=== PATIENT | male | born 1955 | race Caucasian/White ===

== ENCOUNTER 2016-10-05 08:50 | Inpatient (IN) | payer MEDICARE, OTHER ==
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
--- NOTE | ~2016-10-05 | CN ---
Consultation Report [facility] [address] [place]. [address] NAME: MAGGIE DÍAZ : 55 STATUS : ADM IN [facility]#: [id number] AGE: 61 ADM/REG DATE : 10/05/16 MR#: [id number] REPORT SERV DATE: 10/07/16 DICTATED BY: JAMES DC DATE: 10/07/16 REPORT STATUS : Draft TRANSCRIBED BY: NIKKY DATE: 10/07/16 CONSULTATION DATE OF CONSULTATION: 10/07/2016 REASON FOR CONSULTATION: Perineal wound. HISTORY OF PRESENT ILLNESS: Mr. Díaz is a 61-year-old gentleman who underwent an abdominoperineal resection with VRAM flap for an initially perforated rectal cancer. He did have neoadjuvant therapy, and the surgery was on 06/27/2016. He is blind and has a stoma, and for this reason, he will permanently [facility]. He has an indwelling Castro catheter since the time of his surgery and has had a partially dehisced VRAM flap since that time, which has been cared for with moist to dry dressing changes. He was admitted on 10/05/2016 due to hematuria for indwelling Castro and changes in mental status, UTI, and acute kidney injury. Please see Dr. Jean-Paul Hughes' dictation for past medical history, past surgical history, allergies, medications, social history, and family history. REVIEW OF SYSTEMS: As stated in the HPI, otherwise, negative. PHYSICAL EXAMINATION: VITAL SIGNS: 100.3, 99.0, 76, 20, 129/60. GENERAL: Sleeping blind male, in no acute distress. HEENT: Normocephalic, atraumatic. He does not open his eyes and is blind bilaterally. Oropharynx is clear. NECK: Supple. No lymphadenopathy. Clear to auscultation bilaterally. HEART: Regular rate and rhythm. ABDOMEN: Soft. The stoma is present in the left lower quadrant which produces gas and stool. EXTREMITIES: He does move all extremities well. : The perineum at the right side of the VRAM flap has partially dehisced and granulation tissue is visualized. This is where some blood is coming from. There is also blood at the meatus of the penis where the Castro catheter exits. No rashes. LABORATORY DATA: White count is 4.2, H and H 7.9 and 23.4, platelets of 269. INR was 1.7 on admission. Electrolytes within normal range. Creatinine is 0.7, and there is only one troponin, which measures 1.58. 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 CT scan shows dilated small-bowel loops. No transition zone but normal caliber at the terminal ileum. This is unchanged from many of his prior studies. He has a surgically absent left colon with the colostomy second bladder. ASSESSMENT: Prior abdominoperineal resection with vertical rectus abdominis myocutaneous Consultation Report [place] [id number] [facility] [place]. [address] NAME: MAGGIE DÍAZ : 55 STATUS : ADM IN [facility]#: [id number] AGE: 61 ADM/REG DATE : 10/05/16 MR#: [id number] REPORT SERV DATE: 10/07/16 DICTATED BY: JAMES DC DATE: 10/07/16 REPORT STATUS : Draft TRANSCRIBED BY: NIKKY DATE: 10/07/16 flap, bleeding from the perineal wound. PLAN: At this point, I would recommend consulting Wound Care for dressing change recommendations. In the mean time, moist to dry dressing changes can be applied to this area. This is a baseline problem for him and is no different than it has been over the last six months. It is my pleasure participating in the care of your patient. MAITE/NIKKY James Dc M.D. / [id number] CC: Giovanna Adams M.D.
--- NOTE | ~2016-10-05 | CN ---
Consultation Report [facility] [address] [place]. [address] NAME: MAGGIE DÍAZ : 55 STATUS : ADM IN [facility]#: [id number] AGE: 61 ADM/REG DATE : 10/05/16 MR#: [id number] REPORT SERV DATE: 10/06/16 DICTATED BY: ДМИТРИЙ HUGHES DATE: 10/06/16 REPORT STATUS : Draft TRANSCRIBED BY: MODL DATE: 10/06/16 CONSULTATION DATE OF CONSULTATION: 10/06/2016 REASON FOR CONSULTATION: Hematuria. HISTORY OF PRESENT ILLNESS: Mr. Díaz is an unfortunate 61-year-old male, who was admitted to the hospital with urinary tract infection with altered mental status and acute renal failure. He has a very notable past medical history for traumatic brain injury, for which he is managed in a custodial. He has a chronic Castro catheter. Additionally, he has a history of T4 rectal cancer, status post neoadjuvant chemotherapy and surgery. Per the medical record, his prognosis from rectal cancer is guarded. He was found to have gross hematuria. He has a Castro catheter in place. The Castro catheter has had no problems draining. He is hemodynamically stable. I have been asked to consult regarding his hematuria. PAST MEDICAL HISTORY: History of recurrent sepsis from UTIs, history of diabetes, rectal cancer, bilateral lower extremity weakness, neurogenic bladder, seizure disorder. PAST SURGICAL HISTORY: Resection of rectal tumor. SOCIAL HISTORY: He lives in [facility] [place]. No smoking, drinking, or illegal drugs. ALLERGIES: NO KNOWN DRUG ALLERGIES. MEDICATIONS: Reviewed and listed in the chart. FAMILY HISTORY: Noncontributory. REVIEW OF SYSTEMS: A 12-point review of systems was performed. Pertinent positives are listed in the HPI. PHYSICAL EXAMINATION: VITAL SIGNS: Temperature is 100.3, pulse is in the 70s to 80s, blood pressure is 85/51, saturating 95% on room air. GENERAL: He is in no acute distress. He is sleeping. He appears his stated age. HEENT: His head is normocephalic and atraumatic. LUNGS: Breathing is nonlabored. He is not in respiratory distress. HEART: Pulse is regular in rate and rhythm. ABDOMEN: Soft. Castro catheter is in place, urine is dark red consistent with old clot. LABORATORY DATA: White count is 4.1, hemoglobin 8.2. Creatinine is 1.16. Procalcitonin is 0.14. Consultation Report [place] [id number]. [address] NAME: MAGGIE DÍAZ : 55 STATUS : ADM IN PAT#: [id number] AGE: 61 ADM/REG DATE : 10/05/16 MR#: [id number] REPORT SERV DATE: 10/06/16 DICTATED BY: ДМИТРИЙ HUGHES DATE: 10/06/16 REPORT STATUS : Draft TRANSCRIBED BY: NIKKY DATE: 10/06/16 IMAGING: He had a CT scan of the abdomen and pelvis with contrast several months ago that showed no hydronephrosis or stones. ASSESSMENT AND PLAN: Mr. Díaz has apparent need for chronic indwelling Castro catheter for bladder drainage and maintenance of hygiene. This is his main risk factor for an infection, as well as being in a nursing facility. His hematuria is likely secondary to his acute cystitis. Fortunately, the catheter is draining well and there is no acute hemorrhage going on, although the urine appears dark consistent with old clot. At this time, recommend continuing antibiotics and following up his urine culture. Antibiotics should be tailored to the appropriate organism cultured. He should follow up in clinic after discharge to discuss options. He is likely a good candidate for a CT-guided suprapubic tube with Interventional Radiology. Does have a lower infection risk and hopefully more comfortable for him. This can all be arranged at a later date. Please flush the catheter as needed and call if further questions. JAMIE/NIKKY Дмитрий Hughes MD / [id number] CC: MD Sharita Altamirano M.D.
--- NOTE | ~2016-10-05 | HP ---
History And Physical [place] [id number] [place]. [address] NAME: MAGGIE DÍAZ : 55 STATUS : ADM IN [facility]#: [id number] AGE: 61 ADM/REG DATE : 10/05/16 MR#: [id number] REPORT SERV DATE: 10/05/16 DICTATED BY: MAGGIE WRIGHT DATE: 10/05/16 REPORT STATUS : Draft TRANSCRIBED BY: MODL DATE: 10/05/16 DATE OF ADMISSION: 10/05/2016 REASON FOR ADMISSION: Urinary tract infection with altered mental status and acute renal failure. HISTORY: This is a 61-year-old white male with a history of traumatic brain injury. He was in the fci at [facility]. Someone noticed a right facial droop. The patient has history of traumatic brain injury and has weakness on the right side of his body. He is unable to give history completely. History is obtained from Dr. Rodriguez from the review of the old records and from review of the hospital records as well. He was recently discharged on August 09. He was in the hospital actually June 27 through July 08. He underwent an abdominoperineal resection with a VRAM flap after neoadjuvant chemotherapy for a T4 rectal tumor that had initially perforated. He had a diversion colostomy at that time. He had new onset atrial fibrillation during the hospitalization with some T-wave inversion. He was treated for that and released. PAST MEDICAL HISTORY: He was previously in the hospital with sepsis from urinary tract infection with Klebsiella and Pseudomonas. He does have a history of type 2 diabetes, rectal cancer, and bilateral lower extremity weakness though he appears to have more on the right side than the left. He has a chronic indwelling Castro catheter. His Castro catheter has been in since spring. The patient does not desire to have it removed. He does have seizure disorder, he is on medications for this. He presented previously with lethargy and confusion with elevated temperature in May of 2016, on similar medications, thought to have sepsis and shock from urinary tract infection. His fci medications are as follows: Amlodipine 10 mg p.o. q.a.m.; vitamin C 500 mg p.o. with breakfast and supper; aspirin 81 mg p.o. daily; carbamazepine 200 mg p.o. tablet, 900 mg at bedtime of Epitol, carbamazepine ER 300 mg p.o. every morning; clonazepam 0.5 mg p.o. three times a day; valproic acid or divalproex 500 mg p.o. b.i.d.; fentanyl 10 mcg q. 72 hours; Dilaudid 4 mg q.i.d. routinely and then every four hours as needed for cancer pain; gabapentin 600 mg p.o. q.a.m.; ibuprofen 800 mg p.o. b.i.d. through today; lisinopril 40 mg p.o. daily; metformin 500 mg p.o. b.i.d.; Macrobid 100 mg p.o. b.i.d. for five days; ondansetron 4 mg q.6 hours p.r.n. and 8 mg 4 times a day for 7 days; pantoprazole 40 mg p.o. daily; MiraLAX 1 pack every morning; pravastatin 80 mg p.o. at bedtime; vitamins 1 a day; Florastor 750 mg p.o. every morning; simethicone 80 mg p.o. q.i.d.; Topamax 200 mg p.o. b.i.d.; and Azo urinary tract p.r.n. urinary tract symptoms 3 times a day. ALLERGIES: NONE ARE KNOWN. SOCIAL HISTORY: He lives at [facility]. He says he grew up in [place] and went to [place] schools. He has no children. He is not , never , he is single, History And Physical [address] [address] NAME: MAGGIE DÍAZ : 55 STATUS : ADM IN [facility]#: [id number] AGE: 61 ADM/REG DATE : 10/05/16 MR#: [id number] REPORT SERV DATE: 10/05/16 DICTATED BY: MAGGIE WRIGHT DATE: 10/05/16 REPORT STATUS : Draft TRANSCRIBED BY: NIKKY DATE: 10/05/16 does not smoke or drink. FAMILY HISTORY: The patient is unable to give it. REVIEW OF SYSTEMS: He knows he is at [facility] but denies any unilateral weakness, melena, or hematemesis, fits, seizures, or convulsions. The remainder of the review of systems is negative. PHYSICAL EXAMINATION: GENERAL: This is a younger-appearing white male, in no acute distress. He is blind bilaterally. VITAL SIGNS: His blood pressure is low at 70/60 but had a heart rate of 110 and blood pressure is now back up to 96/60. Respiratory rate 16, afebrile. HEENT: His eyes are atrophic on the right side. He stares ahead with the left. There is no reaction to people. He does not blink to threat testing. NECK: No bruit without any JVD. CHEST: Clear to A and P. HEART: Regular S1, S2 with a 2 to 3/6 systolic murmur diffusely over the whole precordium without click. ABDOMEN: Soft and nontender. Bowel sounds are positive. EXTREMITIES: There is no edema. 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 He has increased tone on the left side as well. He is able to lift both legs left side. He does straight leg raise without problem on the left side. He has some dysmetria and slightly weaker to lift. I get no DTRs at the knees or the ankles. SKIN: Without rash, ecchymosis, or bruising. LYMPHATICS: There is no adenopathy palpable. LABORATORY STUDIES: Chest x-ray shows some increased atelectatic changes as in the past, nonspecific, suspicious for atelectasis. CT scan of the brain shows focal encephalomalacia involving the high medial left parietal lobe consistent with chronic infarction that had occurred on 03/10/2016. No other acute intracranial abnormality. White count was 5200, hemoglobin 8.5, hematocrit 25.7, and platelets were 288,000. The CMP showed a sodium of 132, potassium 3.9, creatinine 2.38 with a BUN of 58. Troponin less than 0.02. Liver tests were normal. Urinalysis was obtained that did show greater than 182 red cells, 182 white cells per high- powered field, large amount of leukocytes and blood, glucose greater than 500 mg%, cloudy in appearance with some pink tinge. Review of the old records obtainable, the patient had a previous creatinine to be in the 0.5 to 0.8 range during prior hospitalizations. It was high as 2.09 back in June of 2016. History And Physical [address] [address] NAME: MAGGIE DÍAZ : 55 STATUS : ADM IN PAT#: [id number] AGE: 61 ADM/REG DATE : 10/05/16 MR#: [id number] REPORT SERV DATE: 10/05/16 DICTATED BY: MAGGIE WRIGHT DATE: 10/05/16 REPORT STATUS : Draft TRANSCRIBED BY: MODL DATE: 10/05/16 ASSESSMENT: 1. Acute renal failure with elevation of creatinine, likely dehydration due to poor oral intake though a combination of nonsteroidal anti-inflammatory agents and the MARYANN inhibitors may be some of the problem. We will hold both of these and go ahead and hydrate. 2. Urinary tract infection, likely is chronic and associated with the indwelling Castro catheter. Previously had Klebsiella and Pseudomonas as the offending agents. He has had no fever or chills. He has normal white count, just had an altered mental status. I suspect there may be some sepsis associated with the change in mental status versus the acute renal failure as listed above. 3. Blindness since . 4. History of traumatic brain injury. 5. Anemia. 6. Rectal cancer with a recent surgery after neoadjuvant chemotherapy with a history of sepsis from perforation initially. 7. Anemia. Comparing previous lab results, his hematocrits have run from 27.1 to 34.5 over the last three months. 8. His INR is at 1.7 with questionable cause for the coagulopathy. PLAN: IV hydration and repeat the BMP in the morning. He was started on Rocephin though with the chronic indwelling Castro catheter and previous Pseudomonas and Klebsiella; both Klebsiella oxytoca and Pseudomonas aeruginosa were sensitive to Cipro and probably cefepime as well. With a history of seizure disorder, probably best to use the cefepime at this time empirically until cultures return. DB/RUTHANNL Maggie Wright M.D. / [id number] CC: Sharita Shen M.D.
--- NOTE | ~2016-10-05 | EEG ---
Electroencephalogram [facility] [address] [place]. [address] NAME: MAGGIE DÍAZ : 55 STATUS : ADM IN PAT#: [id number] AGE: 61 ADM/REG DATE : 10/05/16 MR#: [id number] REPORT SERV DATE: 10/06/16 DICTATED BY: DATE: REPORT STATUS : Draft TRANSCRIBED BY: MODL DATE: 10/06/16 CLINICAL INDICATIONS: Encephalopathy, unresponsiveness. DESCRIPTION: This EEG was performed using 10/20 electrode placement system. During the EEG study, generalized slowing was seen with predominant occipital rhythm of roughly 6-7 Hz. Photic stimulation was performed, but no clear driving response was seen. Hyperventilation was not performed secondary to the patient's encephalopathy state. Symmetric background activity was noted. No seizure discharge, electrographic seizure, or focal abnormality was otherwise noted. The patient achieved drowsy, stage I and II sleep with sleep spindle as well as K-complexes. INTERPRETATION: This EEG study obtained during awake, drowsy, stage I and II sleep may be considered abnormal secondary to presence of generalized slowing. No focal abnormalities, seizure activity, or seizure discharge was otherwise noted. No electrographic seizure was seen. Normal EEG does not preclude the diagnosis of seizure disorder or generalized slowing have fortunately why differential diagnosis including metabolic toxic encephalopathy postictal state or diffuse cerebral dysfunction. Clinical correlation is otherwise recommended. [facility]/MODL Carl Ríos MD / [id number] CC: Giovanna Adams M.D.
--- NOTE | ~2016-10-05 | DS ---
Discharge Summary [address] [id number] [facility] [place]. [address] NAME: MAGGIE DÍAZ : 55 STATUS : DIS IN PAT#: [id number] AGE: 61 ADM/REG DATE : 10/05/16 MR#: [id number] REPORT SERV DATE: 10/13/16 DICTATED BY: KEIKO BARNETT DATE: 10/12/16 REPORT STATUS : Draft TRANSCRIBED BY: MODL DATE: 10/12/16 ADMISSION DATE: 10/05/2016 DISCHARGE DATE: 10/12/2016 CONDITION ON DISCHARGE: Condition of the patient is stable upon discharge. DISPOSITION: Discharged to [facility]p facility preferably [facility] as of today. DIAGNOSES ON DISCHARGE: 1. Catheter-related urinary tract infection with urine culture positive for Klebsiella oxytoca. The patient has received Levaquin for seven days and Pharmacy recommends discontinuing this after seven days because of risk of Clostridium difficile and we will do so. 2. Other diagnoses that have completely resolved at this time include sepsis that has resolved. Acute kidney injury that has resolved. Metabolic encephalopathy secondary to sepsis that has resolved. 3. Recurrent rectal cancer, despite surgical resection and previous neoadjuvant chemotherapy and radiation. The patient continues to get chemotherapy per Dr. Farzad Stein on a weekly basis for six weeks and stays off for two weeks. The patient has been traveling back and forth from [facility] to Dr. Stein's office for this purpose. This will continue to happen. 4. 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 5. Bilateral blindness. The patient is legally blind at this time and needs help taking care of self. 6. Chronic Castro catheter placement at least for now to help wound healing at this time. The area where the wound is in the perirectal or perineal area, needs to stay dry and hence, the Castro catheter. At this time however, he will not need any more antibiotics. BRIEF HOSPITAL COURSE: Please refer to interim discharge summary dictated by Dr. Fuentes on 10/10/2016. Between 10/10/2016 and 10/12/2016, the patient's condition continued to improve and remained stable. The only reason he stayed back in the hospital was to get a Port-A- Cath placement per Dr. Rowley. The patient did get the Port-A-Cath placed on 10/12/2016. This is a power port, and it is placed on the left side of the chest. The area appears clean, and the patient is very stable after power port placement. Hence, the patient is being transferred to [facility] hopefully today on 10/12/2016 with the following advice upon discharge: 1. The patient will follow up with Dr. Farzad Stein, his oncologist as scheduled next week. He will follow up with Dr. Audra Dc as scheduled. His discharge medications will be as follows. 1. The patient will continue to take the following medications upon discharge: Amlodipine 10 mg once a day, vitamin C 500 mg p.o. b.i.d., carbamazepine 900 mg p.o. at bedtime and 300 mg p.o. in the morning, Neurontin 600 mg every day. 2. The patient will not be on any sliding scale insulin, but will resume his metformin which is his home medication at this time. Discharge Summary [address] [address] NAME: MAGGIE DÍAZ : 55 STATUS : DIS IN PAT#: [id number] AGE: 61 ADM/REG DATE : 10/05/16 MR#: [id number] REPORT SERV DATE: 10/13/16 DICTATED BY: KEIKO BARNETT DATE: 10/12/16 REPORT STATUS : Draft TRANSCRIBED BY: NIKKY DATE: 10/12/16 3. The patient will continue taking multivitamin tablet, Protonix 40 mg p.o. b.i.d., MiraLAX powder as directed, Pravachol 80 mg once a day, Florastor 250 mg p.o. daily, Gas-X p.r.n., Topamax 200 mg p.o. b.i.d., Depakote 500 mg p.o. b.i.d., Klonopin 0.5 mg p.o. t.i.d., metformin 500 mg p.o. b.i.d., Dilaudid 4 mg p.o. every four hours p.r.n. for severe pain from the rectal cancer and the wound in the rectal area itself. 4. The patient will also continue taking Zofran 8 mg p.o. every six hours p.r.n. 5. The patient will also take aspirin 81 mg once a day. However, at this time, I have discontinued his lisinopril 40 mg every day that he was taking and also discontinued the fentanyl patch. I have spent about 40 minutes in coordinating discharge care of this patient including face- to-face encounter and summarizing this discharge. AZEEM/NIKKY Keiko Barnett M.D. / [id number] CC: Giovanna Lazar M.D.
--- NOTE | ~2016-10-05 | OP ---
Record Of Operation [facility] [address] [place]. [address] NAME: MAGGIE DÍAZ : 55 STATUS : ADM IN PAT#: [id number] AGE: 61 ADM/REG DATE : 10/05/16 MR#: [id number] REPORT SERV DATE: 10/12/16 DICTATED BY: JAMES DC DATE: 10/12/16 REPORT STATUS : Draft TRANSCRIBED BY: MODL DATE: 10/12/16 DATE OF PROCEDURE: 10/12/2016 PREPROCEDURE DIAGNOSIS: Thrombosclerosis. POSTPROCEDURE DIAGNOSIS: Thrombosclerosis. PROCEDURE: Left IJ Saogcp-D-Dkov placement with fluoro and ultrasound guidance. LATRINE CLEANER: Amador. DESCRIPTION OF PROCEDURE: The patient was taken to the operating room, induced under MAC anesthetic in the supine position, prepped and draped in the usual sterile fashion. Ultrasound was performed of the right internal jugular vein; however, it was completely occluded from prior access, so the decision was made to go to the left side where ultrasound again was used, here there was a widely patent left internal jugular vein, which was larger anterior lateral and compressible compared to the pulsatile carotid. Local anesthetic was injected superficially and the finder needle was used under ultrasound guidance and the left internal jugular was accessed, here the wire was placed via Seldinger technique, confirmed with fluoro, then the needle was removed and the wire was pinned to the drapes using a rubber-shod. Following this, the port pocket site was injected 2 x 2 site on the left anterior chest making a 2 cm incision using the scalpel. This was carried down to the level of the subcu fat using cautery. A port pocket was created. This easily fit the port. Two stay sutures of Prolene were placed on either side and then injection of local anesthetic from the port pocket site to the neck incision where a stab incision was made overlying the wire, here the tubing and tunneler were placed from the port pocket site to the neck incision coming out laterally where the tunneler was cut on an angle from the tubing. The sheath plus the obturator were placed over the wire via Seldinger technique without any resistance. The obturator and wire were removed. The tubing placed down the sheath to 20 cm. The syringe aspirated and flushed easily. The sheath was cracked and removed holding the tubing in place. Fluoro confirmed the tip of the catheter in the superior vena cava and the tubing was then clamped at the port pocket site where it was cut to size, dilated, attached to the port, and locked into place. A Art needle was used to aspirate and flush easily. Then, the port was placed into the pocket. The 2 Prolenes were used to secure it in place. All wounds were irrigated and closed with 3-0 Vicryl suture and the port pocket site was closed with 4-0 Monocryl subcu followed by benzoin, Steri-Strips, Telfa, and two Tegaderms. He tolerated the procedure well. Chest x-ray will be obtained in recovery. MAITE/NIKKY James Dc M.D. / [id number] Record Of [address] [address] NAME: MAGGIE DÍAZ : 55 STATUS : ADM IN PAT#: [id number] AGE: 61 ADM/REG DATE : 10/05/16 MR#: [id number] REPORT SERV DATE: 10/12/16 DICTATED BY: JAMES DC DATE: 10/12/16 REPORT STATUS : Draft TRANSCRIBED BY: NIKKY DATE: 10/12/16 CC: Giovanna Lazar M.D. Davey B. Daniel, M.D. Elaina D'Lynn Rodela, M.D.
--- NOTE | ~2016-10-05 | CN ---
Consultation Report [facility] [address] [place]. [address] NAME: MAGGIE DÍAZ : 55 STATUS : ADM IN PAT#: [id number] AGE: 61 ADM/REG DATE : 10/05/16 MR#: [id number] REPORT SERV DATE: 10/06/16 DICTATED BY: DATE: REPORT STATUS : Draft TRANSCRIBED BY: MODL DATE: 10/06/16 NEUROLOGY CONSULTATION. DATE OF CONSULTATION: 10/06/2016 REASON FOR CONSULT: Possible stroke. HISTORY OF PRESENT ILLNESS: This is a 61-year-old male who was recently hospitalized and discharged, presented to [facility] secondary to altered mental status. Unfortunately, family is unavailable and the patient is unable to provide history. As a result, history was gathered from medical record as well as the patient's hospitalist, Dr. Fuentes. The patient was normally able to communicate, is able to ambulate, behaving normally until last noted to be normal on 10/04/2016 when the patient's family talked to the patient on the phone. The patient subsequently was noted to be altered with the patient noted to have decreased arousal as well as left-sided stiffness and was brought to the hospital for evaluation. The patient does have a history of traumatic brain injury and apparently somewhat difficult to control seizure presumably from the traumatic brain injury. The patient recently has underwent a significant surgery secondary to rectal tumor, apparently have a significant complication afterwards with a new onset atrial fibrillation that was subsequently treated and discharged to rehab afterwards. The patient since the hospitalization was not noted to have significant improvement, was noted to have significant dysarthria in the morning of evaluation, and was now noted to be obtunded. PAST MEDICAL HISTORY: Significant for sepsis, urinary tract infection, as well as history of recent rectal tumor resection, bilateral lower extremity weakness, as well as history of traumatic brain injury, and seizure disorder. ALLERGIES: THE PATIENT WAS NOTED TO HAVE NO KNOWN DRUG ALLERGIES. SOCIAL HISTORY: No significant tobacco or alcohol usage was noted. FAMILY HISTORY: Otherwise unable to be obtained secondary to the patient's current mental status. REVIEW OF SYSTEMS: Otherwise unable to be obtained secondary to the patient's current mental status. HOME MEDICATIONS: Consist of amlodipine, vitamin C, aspirin, carbamazepine 900 mg at bedtime and 300 mg every morning, Klonopin 0.5 mg three times a day, Depakote 500 mg p.o. b.i.d., fentanyl patch, Neurontin, Dilaudid, Motrin, lisinopril, Glucophage, Macrobid, Zofran, Protonix, MiraLAX, pravastatin, multivitamin, Florastor, simethicone, and Topamax. PHYSICAL EXAMINATION: VITAL SIGNS: Overnight, the patient was noted to have vital signs with T-max of 100.3, Consultation Report [address] [address] NAME: MAGGIE DÍAZ : 55 STATUS : ADM IN PAT#: [id number] AGE: 61 ADM/REG DATE : 10/05/16 MR#: [id number] REPORT SERV DATE: 10/06/16 DICTATED BY: DATE: REPORT STATUS : Draft TRANSCRIBED BY: MODEdward DATE: 10/06/16 heart rate of 71 to 99, respirations of 18 to 19, and blood pressure of 85 to 140 over 51 to 66. GENERAL: The patient is well developed, well nourished, in no acute distress. CARDIOVASCULAR: Regular rate and rhythm. No carotid bruits were otherwise auscultated. PULMONARY: Clear to auscultation bilaterally. NEUROLOGIC: Generally, the patient is obtunded. He is unable to be aroused and does not follow commands and was nonverbal. The patient does have vocalization with noxious stimulation. The patient was noted to have a dysconjugate gaze with the left gaze preference, and horizontal eye movement was noted with oculocephalic maneuver with blink to threat response. The patient was noted to have asymmetric facial expression. The patient noted to have decreased nasolabial fold on the left. No spontaneous movement of extremity was otherwise noted with increased muscle tone bilaterally. The patient does have grimace to noxious stimulation in all four extremities. Deep tendon reflex was 1+ throughout. He was noted to have grimace to noxious stimulation in bilateral face. Otherwise gait and cerebellar examinations unable to be performed secondary to the patient's obtundation state. LABORATORY STUDIES: Demonstrated white blood cell count of 4.1, hemoglobin of 8.2, hematocrit of 24.6, and platelet count of 279. Chemistry panel: Sodium of 136, potassium 3.7, chloride 102, bicarb of 23, BUN of 34, creatinine of 1.16, glucose of 125. Calcium of 8.7. Serum Depakote level of 51.7 with procalcitonin level was 0.14. Urinalysis demonstrated moderate leukocyte esterase, negative nitrites. ABG demonstrated pH of 7.45, pCO2 of 33, pO2 of 91, bicarb 22.1, O2 saturation of 95.5. CT scan of the brain demonstrated no acute process with the patient noted to have concern of hypoattenuation appeared to be on the right-sided high parietal area, although dictation reports to be on the left side. IMPRESSION: Encephalopathy, etiology is unclear. The patient does have EEG performed today. We will review EEG tracing, otherwise agree with MRI of the brain when the patient is clinically stable secondary to the patient's obtundation and difficulty swallowing will change Depakote to 500 mg IV b.i.d. The patient may be warranted to have Dobbhoff or NG tube placement for medication advancement. We will also check laboratory study for evaluation. RECOMMENDATION: 1. We will review EEG. 2. MRI of the brain when the patient is medically stable. 3. We will check change Depakote to 500 mg IV b.i.d. 4. Ammonia, TSH, free T4, vitamin B12, folate, thiamine with morning labs. [facility]/MODL Carl Mccracken Consultation Report [address] [address] NAME: MAGGIE DÍAZ : 55 STATUS : ADM IN [facility]#: [id number] AGE: 61 ADM/REG DATE : 10/05/16 MR#: [id number] REPORT SERV DATE: 10/06/16 DICTATED BY: DATE: REPORT STATUS : Draft TRANSCRIBED BY: MODL DATE: 10/06/16 MD [place] / [id number] CC: Giovanna Adams M.D.
[~2016-10-05 08:50] MED LIST: AMARYL1 MG PO; AMARYL2 PO; ASAB PO; CARBAT300 PO; CAT2 PO; CENTRUM PO; DEPAKOT500 PO; DURA12 TOP; DURA50 TOP; FLORANEX PO; GAS-X80 MG PO; GLUCPH PO; HUMALOG SC; KLONO5 PO; LISINOPRIL40 MG PO; METHAZOLAMIDE 25 MG PO; METHIMAZOLE5 MG PO; MIRALAXPKT PO; NEUR600 PO; NORCO1 TA2 PO; NORV10 PO; PLAVIX PO; PRAVACHOL80 MG PO; PRENATABS RX PO; PROTONIX PO; PYR100B PO; TEG200 PO; TOPAMAX200 MG PO; VITC500 PO; ZOFRAN IM; ZOFRAN4 PO
[2016-10-05 08:57] LABS: BASOPHILS 0.2 %; BASOPHILS ABSOLUTE 0.01 10/3/uL (0.0-0.16); EOSINOPHILS 1.5 %; EOSINOPHILS ABSOLUTE 0.08 10/3/uL (0.0-0.53); ER CBC TAT 0 Hrs 05 Mins; HEMATOCRIT 25.7 % (40.0-51.0); HEMOGLOBIN 8.5 g/dL (13.6-17.8); IMMATURE GRANULOCYTES 1.7 %; IMMATURE GRANULOCYTES ABSOLUTE 0.09 10/3/uL (0.0-0.11); LYMPHOCYTES 15.7 %; LYMPHOCYTES ABSOLUTE 0.82 10/3/uL (0.67-4.30); MANUAL DIFF NO %; MEAN CORPUS HGB CONC 33.1 g/dL (32.0-36.0); MEAN CORPUSCULAR HEMOGLOB 29.8 pg (26.0-34.0); MEAN CORPUSCULAR VOLUME 90.2 fL (80-100); MEAN PLATELET VOLUME 7.5 fL (9.2-13.0); MONOCYTES 21.4 %; MONOCYTES ABSOLUTE 1.12 10/3/uL (0.21-1.20); NEUTROPHILS 59.5 %; NEUTROPHILS ABSOLUTE 3.11 10/3/uL (2.02-8.40); PLATELET COUNT 288 10/3/uL (150-400); RBC DISTRIBUTION WIDTH 17.4 % (12.0-16.0); RED CELL COUNT 2.85 10/6/uL (4.7-6.1); WHITE BLOOD CELLS 5.2 10/3/uL (4.5-10.5)
[2016-10-05] MEDS ORDERED: DIL4TAB PO ×2 (08:58→08:59)
[2016-10-05] MEDS ORDERED: ZOFRAN8 PO (08:59)
[2016-10-05] MEDS ORDERED: IBU800 PO (09:00)
[2016-10-05] MEDS ORDERED: [UNRECOGNIZED DRUG - OTHER] PO (09:01)
[2016-10-05] MEDS ORDERED: MACROBID PO (09:02)
[2016-10-05] MEDS ORDERED: ZOFRAN4 PO (09:03)
[2016-10-05] MEDS ORDERED: PROTONIX PO (09:03)
[2016-10-05] MEDS ORDERED: GAS-X80 MG PO (09:03)
[2016-10-05 09:04] LABS: INTERNATIONAL NORMAL RATI 1.7 UNITS (-); PARTIAL THROMBO TIME 35.4 SEC (22.5-37.2)
[2016-10-05] MEDS ORDERED: DURA12 TOP (09:04)
[2016-10-05] MEDS ORDERED: ASAB PO (09:04)
[2016-10-05] MEDS ORDERED: NORV10 PO (09:04)
[2016-10-05 09:05] LABS: ASCORBIC ACID (UR NOT ORDER) NEG (NEG); BILIRUBIN, URINE NEGATIVE (NEG); ER URINALYSIS TAT 0 Hrs 13 Mins; KETONE, URINE TRACE MG/DL (NEG); LEUKOCYTE ESTERASE(NOT OR MOD (NEG)
[2016-10-05] MEDS ORDERED: NEUR600 PO (09:05)
[2016-10-05] MEDS ORDERED: MIRALAX POWDER1 PKT PO (09:05)
[2016-10-05] MEDS ORDERED: LISINOPRIL40 MG PO (09:05)
[2016-10-05] MEDS ORDERED: TOPAMAX200 MG PO (09:05)
[2016-10-05] MEDS ORDERED: DEPAKOT500 PO (09:06)
[2016-10-05] MEDS ORDERED: CARBAT300 PO (09:06)
[2016-10-05] MEDS ORDERED: PRENAVITE PR PO (09:07)
[2016-10-05] MEDS ORDERED: VITC500 PO (09:07)
[2016-10-05] MEDS ORDERED: GLUCPH PO (09:07)
[2016-10-05 09:08] LABS: NITRITE (URINE) NEG (NEG); WBC (NOT ORDERED) (RFLEX) > 182 (0-5)
[2016-10-05] MEDS ORDERED: PRAVACHOL80 MG PO (09:08)
[2016-10-05] MEDS ORDERED: FLORASTOR250 MG PO (09:08)
[2016-10-05] MEDS ORDERED: KLONO5 PO (09:09)
[2016-10-05] MEDS ORDERED: EPITOL200 MG PO (09:09)
[2016-10-05 09:16] LABS: A/G RATIO 0.8 (0.7-1.9); ALBUMIN 3.2 G/DL (3.5-5.0); CALCIUM, SERUM 8.5 MG/DL (8.5-10.4); CO2 (CARBON DIOXIDE) 21 MMOL/L (24-34); GLOBULIN 3.9 G/DL (2.5-4.1); GLUCOSE, SERUM 78 MG/DL (60-99); POTASSIUM, SERUM 3.9 MMOL/L (3.5-5.3); SGOT(AST) 16 U/L (5-40); SGPT(ALT) 21 U/L (5-65); SODIUM, SERUM 132 MMOL/L (135-148); TOTAL PROTEIN 7.1 G/DL (6.0-8.5); TROPONIN I <0.02 NG/ML (<0.05)
[2016-10-05 09:17] LABS: ALKALINE PHOSPHATASE 64 U/L (45-117); BUN (BLOOD UREA NITROGEN) 56 MG/DL (6-23); CHLORIDE, SERUM 95 MMOL/L (96-112); CREATININE 2.38 MG/DL (0.70-1.30); GFR AFRICAN AMERICAN 33 ML/MIN (>=60); GFR NON AFRICAN AMERICAN 28 ML/MIN (>=60)
[2016-10-05 09:18] LABS: ANISOCYTOSIS 1+ (5-10/OIF) (0-5/OIF); BAND NEUTROPHILS 25 %; EOSINOPHILS 5 %; EOSINOPHILS ABSOLUTE (CALC) 0.26 10/3/uL (0.0-0.53); ER DIFF TAT 0 Hrs 26 Mins; IMMATURE GRANS ABSOLUTE (CALC) 0.21 10/3/uL (0.0-0.11); LYMPHOCYTES 17 %; LYMPHOCYTES ABSOLUTE (CALC) 0.88 10/3/uL (0.67-4.30); METAMYELOCYTES 3 %; MONOCYTES 10 %; MONOCYTES ABSOLUTE (CALC) 0.52 10/3/uL (0.21-1.20); MYELOCYTES 1 %; NEUTROPHILS ABSOLUTE (CALC) 3.33 10/3/uL (2.02-8.40); PLATELET ESTIMATE ADQ (ADEQUATE); SEGMENTED NEUTROPHIL (0) 39 %; TOTAL NUCLEATED CELLS 100; TOXIC GRANULATION 2+
[2016-10-05 09:19] LABS: POLYCHROMASIA 1+ (2-5/OIF) (0-1/OIF)
[2016-10-06 05:13] LABS: HEMATOCRIT 24.6 % (40.0-51.0); HEMOGLOBIN 8.2 g/dL (13.6-17.8); MEAN CORPUS HGB CONC 33.3 g/dL (32.0-36.0); MEAN CORPUSCULAR VOLUME 90.1 fL (80-100); MEAN PLATELET VOLUME 7.3 fL (9.2-13.0); PLATELET COUNT 279 10/3/uL (150-400); RBC DISTRIBUTION WIDTH 17.3 % (12.0-16.0); RED CELL COUNT 2.73 10/6/uL (4.7-6.1); WHITE BLOOD CELLS 4.1 10/3/uL (4.5-10.5)
[2016-10-06 05:17] LABS: MANUAL DIFF YES %
[2016-10-06 05:26] LABS: CALCIUM, SERUM 8.7 MG/DL (8.5-10.4); CHLORIDE, SERUM 102 MMOL/L (96-112); CO2 (CARBON DIOXIDE) 23 MMOL/L (24-34); POTASSIUM, SERUM 3.7 MMOL/L (3.5-5.3); SODIUM, SERUM 136 MMOL/L (135-148)
[2016-10-06 05:27] LABS: BUN (BLOOD UREA NITROGEN) 34 MG/DL (6-23); CREATININE 1.16 MG/DL (0.70-1.30); GFR AFRICAN AMERICAN 78 ML/MIN (>=60); GFR NON AFRICAN AMERICAN 68 ML/MIN (>=60); GLUCOSE, SERUM 125 MG/DL (60-99)
[2016-10-06 05:41] LABS: ALLENS TEST Pos; BE (BASE EXCESS) -1.5 MEQ/L (0 +/- 2.5); CARBOXYHEMOGLOBIN 0.7 % (0-3); HCO3 (ACTUAL BICARBONATE) 22.1 MEQ/L (23-27); HEMOBLOGIN CONTENT 9.2 G/DL (14-18); INSTRUMENT SERIAL # 8083; METHEMOGLOBIN 0.3 % (0-3); O2 CONTENT 12.4 VOL% (18-24); PCO2 (CO2 TENSION) 33 MMHG (35-45); PO2 (O2 TENSION) 91 MMHG (79-93); SAMPLE Arterial; pH 7.45 (7.37-7.43)
[2016-10-06 06:23] LABS: ANISOCYTOSIS 1+ (5-10/OIF) (0-5/OIF); BAND NEUTROPHILS 29 %; LYMPHOCYTES 7 %; LYMPHOCYTES ABSOLUTE (CALC) 0.29 10/3/uL (0.67-4.30); MONOCYTES 11 %; MONOCYTES ABSOLUTE (CALC) 0.45 10/3/uL (0.21-1.20); NEUTROPHILS ABSOLUTE (CALC) 3.36 10/3/uL (2.02-8.40); PLATELET ESTIMATE ADQ (ADEQUATE); POLYCHROMASIA 1+ (2-5/OIF) (0-1/OIF); SEGMENTED NEUTROPHIL (0) 53 %; TOTAL NUCLEATED CELLS 100
[2016-10-06 06:24] LABS: TOXIC GRANULATION 1+
[2016-10-06 10:17] LABS: DEPAKENE (VALPROIC ACID) 51.7 MCG/ML (50.0-100.0)
[2016-10-06 11:01] LABS: PROCALCITONIN 0.14 ng/mL (<0.5)
[2016-10-07 04:55] LABS: HEMATOCRIT 23.4 % (40.0-51.0); HEMOGLOBIN 7.9 g/dL (13.6-17.8); MEAN CORPUS HGB CONC 33.8 g/dL (32.0-36.0); MEAN CORPUSCULAR HEMOGLOB 30.9 pg (26.0-34.0); MEAN CORPUSCULAR VOLUME 91.4 fL (80-100); MEAN PLATELET VOLUME 7.6 fL (9.2-13.0); PLATELET COUNT 269 10/3/uL (150-400); RBC DISTRIBUTION WIDTH 17.6 % (12.0-16.0); RED CELL COUNT 2.56 10/6/uL (4.7-6.1); WHITE BLOOD CELLS 4.2 10/3/uL (4.5-10.5)
[2016-10-07 05:00] LABS: MANUAL DIFF YES %
[2016-10-07 05:48] LABS: A/G RATIO 0.7 (0.7-1.9); ALBUMIN 2.7 G/DL (3.5-5.0); CALCIUM, SERUM 8.5 MG/DL (8.5-10.4); CHLORIDE, SERUM 107 MMOL/L (96-112); CO2 (CARBON DIOXIDE) 23 MMOL/L (24-34); FREE T4 0.77 NG/DL (0.76-1.46); GFR AFRICAN AMERICAN 118 ML/MIN (>=60); GFR NON AFRICAN AMERICAN 102 ML/MIN (>=60); GLOBULIN 3.8 G/DL (2.5-4.1); SGOT(AST) 13 U/L (5-40); SGPT(ALT) 14 U/L (5-65); SODIUM, SERUM 141 MMOL/L (135-148); TOTAL PROTEIN 6.5 G/DL (6.0-8.5)
[2016-10-07 05:52] LABS: ALKALINE PHOSPHATASE 51 U/L (45-117); BUN (BLOOD UREA NITROGEN) 27 MG/DL (6-23); FOLATE > 100.0 NG/ML (>5.2); GLUCOSE, SERUM 82 MG/DL (60-99); TOTAL BILIRUBIN 0.3 MG/DL (0-1.2)
[2016-10-07 06:59] LABS: ANISOCYTOSIS 1+ (5-10/OIF) (0-5/OIF); BAND NEUTROPHILS 22 %; HYPOCHROMIA 1+ (3-10/OIF) (0-2/OIF); IMMATURE GRANS ABSOLUTE (CALC) 0.17 10/3/uL (0.0-0.11); LYMPHOCYTES 8 %; LYMPHOCYTES ABSOLUTE (CALC) 0.34 10/3/uL (0.67-4.30); MACROCYTES 1+ (5-10/OIF) (0-5/OIF); METAMYELOCYTES 4 %; MONOCYTES 6 %; MONOCYTES ABSOLUTE (CALC) 0.25 10/3/uL (0.21-1.20); NEUTROPHILS ABSOLUTE (CALC) 3.44 10/3/uL (2.02-8.40); PLATELET ESTIMATE ADQ (ADEQUATE); SEGMENTED NEUTROPHIL (0) 60 %; TOTAL NUCLEATED CELLS 100
[2016-10-07 17:27] LABS: HEMATOCRIT 22.8 % (40.0-51.0); HEMOGLOBIN 7.7 g/dL (13.6-17.8)
[2016-10-07 18:16] LABS: INTERNATIONAL NORMAL RATI 2.1 UNITS (-)
[2016-10-07 18:17] LABS: PROTIME (NOT ORD) 23.5 SEC (12.0-14.5)
[2016-10-08 06:26] LABS: HEMATOCRIT 21.9 % (40.0-51.0); HEMOGLOBIN 7.4 g/dL (13.6-17.8); MEAN CORPUS HGB CONC 33.8 g/dL (32.0-36.0); MEAN CORPUSCULAR HEMOGLOB 30.7 pg (26.0-34.0); MEAN CORPUSCULAR VOLUME 90.9 fL (80-100); MEAN PLATELET VOLUME 7.9 fL (9.2-13.0); PLATELET COUNT 237 10/3/uL (150-400); RBC DISTRIBUTION WIDTH 17.4 % (12.0-16.0); RED CELL COUNT 2.41 10/6/uL (4.7-6.1)
[2016-10-08 06:33] LABS: MANUAL DIFF YES %
[2016-10-08 06:43] LABS: BUN (BLOOD UREA NITROGEN) 17 MG/DL (6-23); CALCIUM, SERUM 8.5 MG/DL (8.5-10.4); CHLORIDE, SERUM 107 MMOL/L (96-112); CO2 (CARBON DIOXIDE) 23 MMOL/L (24-34); CREATININE 0.59 MG/DL (0.70-1.30); GFR AFRICAN AMERICAN 127 ML/MIN (>=60); GFR NON AFRICAN AMERICAN 109 ML/MIN (>=60); GLUCOSE, SERUM 75 MG/DL (60-99); POTASSIUM, SERUM 3.9 MMOL/L (3.5-5.3); SODIUM, SERUM 140 MMOL/L (135-148)
[2016-10-08 07:06] LABS: ANISOCYTOSIS 1+ (5-10/OIF) (0-5/OIF); BAND NEUTROPHILS 2 %; EOSINOPHILS 5 %; IMMATURE GRANS ABSOLUTE (CALC) 0.04 10/3/uL (0.0-0.11); LYMPHOCYTES 32 %; LYMPHOCYTES ABSOLUTE (CALC) 1.28 10/3/uL (0.67-4.30); METAMYELOCYTES 1 %; MONOCYTES 6 %; MONOCYTES ABSOLUTE (CALC) 0.24 10/3/uL (0.21-1.20); NEUTROPHILS ABSOLUTE (CALC) 2.24 10/3/uL (2.02-8.40); PLATELET ESTIMATE ADQ (ADEQUATE); SEGMENTED NEUTROPHIL (0) 54 %; TOTAL NUCLEATED CELLS 100
[2016-10-08 20:52] LABS: % IRON SAT 40 % (20-50); FERRITIN 238 NG/ML (26-388); IRON BINDING CAPACITY 149 MCG/DL (250-450); IRON, SERUM 59 MCG/DL (35-150)
[2016-10-09 01:06] LABS: MEAN CORPUS HGB CONC 33.2 g/dL (32.0-36.0); MEAN CORPUSCULAR HEMOGLOB 30.7 pg (26.0-34.0); MEAN CORPUSCULAR VOLUME 92.4 fL (80-100); MEAN PLATELET VOLUME 7.4 fL (9.2-13.0); PLATELET COUNT 171 10/3/uL (150-400); RBC DISTRIBUTION WIDTH 17.2 % (12.0-16.0); RED CELL COUNT 2.25 10/6/uL (4.7-6.1); WHITE BLOOD CELLS 4.7 10/3/uL (4.5-10.5)
[2016-10-09 01:10] LABS: HEMATOCRIT 20.8 % (40.0-51.0); HEMOGLOBIN 6.9 g/dL (13.6-17.8)
[2016-10-09 01:11] LABS: MANUAL DIFF YES %
[2016-10-09 01:13] LABS: INTERNATIONAL NORMAL RATI 1.3 UNITS (-)
[2016-10-09 01:25] LABS: CALCIUM, SERUM 8.4 MG/DL (8.5-10.4); CHLORIDE, SERUM 103 MMOL/L (96-112); CO2 (CARBON DIOXIDE) 27 MMOL/L (24-34); CREATININE 0.59 MG/DL (0.70-1.30); GFR AFRICAN AMERICAN 127 ML/MIN (>=60); GFR NON AFRICAN AMERICAN 109 ML/MIN (>=60); GLUCOSE, SERUM 88 MG/DL (60-99); POTASSIUM, SERUM 4.6 MMOL/L (3.5-5.3); SODIUM, SERUM 140 MMOL/L (135-148)
[2016-10-09 01:30] LABS: BUN (BLOOD UREA NITROGEN) 11 MG/DL (6-23)
[2016-10-09 01:51] LABS: ANISOCYTOSIS 1+ (5-10/OIF) (0-5/OIF); BAND NEUTROPHILS 8 %; EOSINOPHILS 2 %; EOSINOPHILS ABSOLUTE (CALC) 0.09 10/3/uL (0.0-0.53); IMMATURE GRANS ABSOLUTE (CALC) 0.09 10/3/uL (0.0-0.11); LYMPHOCYTES 4 %; LYMPHOCYTES ABSOLUTE (CALC) 0.19 10/3/uL (0.67-4.30); METAMYELOCYTES 2 %; NEUTROPHILS ABSOLUTE (CALC) 4.32 10/3/uL (2.02-8.40); PLATELET ESTIMATE ADQ (ADEQUATE); SEGMENTED NEUTROPHIL (0) 84 %; TOTAL NUCLEATED CELLS 100
[2016-10-09 01:52] LABS: TOXIC GRANULATION SLT
[2016-10-09 02:03] LABS: PROTIME (NOT ORD) 15.7 SEC (12.0-14.5)
[2016-10-09 08:43] LABS: HEMOGLOBIN 7.9 g/dL (13.6-17.8)
[2016-10-09 08:44] LABS: HEMATOCRIT 23.5 % (40.0-51.0)
[2016-10-09 20:11] LABS: HEMATOCRIT 25.3 % (40.0-51.0); HEMOGLOBIN 8.5 g/dL (13.6-17.8)
[2016-10-10 07:32] LABS: HEMATOCRIT 31.1 % (40.0-51.0); HEMOGLOBIN 10.6 g/dL (13.6-17.8)
[2016-10-10 07:36] LABS: INTERNATIONAL NORMAL RATI 1.2 UNITS (-); PARTIAL THROMBO TIME 28.2 SEC (22.5-37.2); PROTIME (NOT ORD) 15.1 SEC (12.0-14.5)
[2016-10-10 07:50] LABS: MEAN CORPUS HGB CONC 33.5 g/dL (32.0-36.0); MEAN CORPUSCULAR HEMOGLOB 28.5 pg (26.0-34.0); MEAN CORPUSCULAR VOLUME 84.9 fL (80-100); MEAN PLATELET VOLUME 7.9 fL (9.2-13.0); PLATELET COUNT 194 10/3/uL (150-400); RBC DISTRIBUTION WIDTH 19.8 % (12.0-16.0); RED CELL COUNT 3.65 10/6/uL (4.7-6.1); WHITE BLOOD CELLS 4.7 10/3/uL (4.5-10.5)
[2016-10-10 07:51] LABS: MANUAL DIFF YES %
[2016-10-10 08:11] LABS: ANISOCYTOSIS 1+ (5-10/OIF) (0-5/OIF); BAND NEUTROPHILS 4 %; BASOPHILS 1 %; BASOPHILS ABSOLUTE (CALC) 0.05 10/3/uL (0.0-0.16); EOSINOPHILS 2 %; EOSINOPHILS ABSOLUTE (CALC) 0.09 10/3/uL (0.0-0.53); IMMATURE GRANS ABSOLUTE (CALC) 0.14 10/3/uL (0.0-0.11); LYMPHOCYTES 6 %; LYMPHOCYTES ABSOLUTE (CALC) 0.28 10/3/uL (0.67-4.30); METAMYELOCYTES 3 %; MONOCYTES 7 %; MONOCYTES ABSOLUTE (CALC) 0.33 10/3/uL (0.21-1.20); NEUTROPHILS ABSOLUTE (CALC) 3.81 10/3/uL (2.02-8.40); PLATELET ESTIMATE ADQ (ADEQUATE); SEGMENTED NEUTROPHIL (0) 77 %; TOTAL NUCLEATED CELLS 100
[2016-10-10 08:12] LABS: TOXIC GRANULATION 1+
[2016-10-10 18:30] LABS: HEMOGLOBIN 10.2 g/dL (13.6-17.8)
[2016-10-11 06:55] LABS: BASOPHILS 0.2 %; BASOPHILS ABSOLUTE 0.01 10/3/uL (0.0-0.16); EOSINOPHILS 1.7 %; EOSINOPHILS ABSOLUTE 0.08 10/3/uL (0.0-0.53); HEMATOCRIT 32.8 % (40.0-51.0); IMMATURE GRANULOCYTES 4.8 %; IMMATURE GRANULOCYTES ABSOLUTE 0.23 10/3/uL (0.0-0.11); LYMPHOCYTES 13.7 %; LYMPHOCYTES ABSOLUTE 0.65 10/3/uL (0.67-4.30); MANUAL DIFF NO %; MEAN CORPUS HGB CONC 33.5 g/dL (32.0-36.0); MEAN CORPUSCULAR HEMOGLOB 28.5 pg (26.0-34.0); MEAN PLATELET VOLUME 7.8 fL (9.2-13.0); MONOCYTES 9.2 %; MONOCYTES ABSOLUTE 0.44 10/3/uL (0.21-1.20); NEUTROPHILS 70.4 %; NEUTROPHILS ABSOLUTE 3.35 10/3/uL (2.02-8.40); PLATELET COUNT 193 10/3/uL (150-400); RBC DISTRIBUTION WIDTH 19.7 % (12.0-16.0); RED CELL COUNT 3.86 10/6/uL (4.7-6.1); WHITE BLOOD CELLS 4.8 10/3/uL (4.5-10.5)
[2016-10-11 07:00] LABS: INTERNATIONAL NORMAL RATI 1.2 UNITS (-); PROTIME (NOT ORD) 14.7 SEC (12.0-14.5)
[2016-10-11 07:13] LABS: BUN (BLOOD UREA NITROGEN) 10 MG/DL (6-23); CALCIUM, SERUM 8.9 MG/DL (8.5-10.4); CHLORIDE, SERUM 104 MMOL/L (96-112); CO2 (CARBON DIOXIDE) 22 MMOL/L (24-34); CREATININE 0.45 MG/DL (0.70-1.30); GFR AFRICAN AMERICAN 142 ML/MIN (>=60); GFR NON AFRICAN AMERICAN 122 ML/MIN (>=60); GLUCOSE, SERUM 74 MG/DL (60-99); SODIUM, SERUM 138 MMOL/L (135-148)
[2016-10-11 17:54] LABS: HEMATOCRIT 31.7 % (40.0-51.0); HEMOGLOBIN 10.7 g/dL (13.6-17.8)
[2016-10-12 06:04] LABS: BASOPHILS 0.4 %; BASOPHILS ABSOLUTE 0.02 10/3/uL (0.0-0.16); EOSINOPHILS 1.7 %; EOSINOPHILS ABSOLUTE 0.09 10/3/uL (0.0-0.53); HEMATOCRIT 32.3 % (40.0-51.0); HEMOGLOBIN 10.8 g/dL (13.6-17.8); IMMATURE GRANULOCYTES 3.8 %; LYMPHOCYTES 12.3 %; LYMPHOCYTES ABSOLUTE 0.65 10/3/uL (0.67-4.30); MEAN CORPUS HGB CONC 33.4 g/dL (32.0-36.0); MEAN CORPUSCULAR HEMOGLOB 28.2 pg (26.0-34.0); MEAN CORPUSCULAR VOLUME 84.3 fL (80-100); MEAN PLATELET VOLUME 7.6 fL (9.2-13.0); MONOCYTES 9.4 %; NEUTROPHILS 72.4 %; NEUTROPHILS ABSOLUTE 3.84 10/3/uL (2.02-8.40); PLATELET COUNT 178 10/3/uL (150-400); RBC DISTRIBUTION WIDTH 20.1 % (12.0-16.0); RED CELL COUNT 3.83 10/6/uL (4.7-6.1); WHITE BLOOD CELLS 5.3 10/3/uL (4.5-10.5)
[2016-10-12 06:05] LABS: MANUAL DIFF NO %
[2016-10-12 06:10] LABS: INTERNATIONAL NORMAL RATI 1.2 UNITS (-); PROTIME (NOT ORD) 14.7 SEC (12.0-14.5)
[2016-10-12 06:20] LABS: BUN (BLOOD UREA NITROGEN) 11 MG/DL (6-23); CHLORIDE, SERUM 99 MMOL/L (96-112); CO2 (CARBON DIOXIDE) 26 MMOL/L (24-34); CREATININE 0.73 MG/DL (0.70-1.30); GFR AFRICAN AMERICAN 116 ML/MIN (>=60); GFR NON AFRICAN AMERICAN 100 ML/MIN (>=60); GLUCOSE, SERUM 86 MG/DL (60-99); POTASSIUM, SERUM 4.4 MMOL/L (3.5-5.3); SODIUM, SERUM 132 MMOL/L (135-148)
[2016-10-12 09:39] LABS: CARBAMAZEPINE, TOTAL 14.6 ug/mL (())
[2017-01-14] MEDS ORDERED: MYTAB GAS80 MG PO (17:27)
[2017-01-14] MEDS ORDERED: GLUCPH PO (17:27)
[2017-01-14] MEDS ORDERED: PRILO PO (17:27)
[2017-01-14] MEDS ORDERED: DEPAKOT500 PO (17:28)
[2017-01-14] MEDS ORDERED: NEUR600 PO (17:28)
[2017-01-14] MEDS ORDERED: NORV10 PO (17:28)
[2017-01-14] MEDS ORDERED: ASAB PO (17:28)
[2017-01-14] MEDS ORDERED: VITC500 PO (17:29)
[2017-01-14] MEDS ORDERED: DIL4TAB PO (17:29)
[2017-01-14] MEDS ORDERED: FLORASTOR250 MG PO (17:29)
[2017-01-14] MEDS ORDERED: PRENAVITE PO (17:29)
[2017-01-14] MEDS ORDERED: TEGRETOL XR400 MG PO (17:30)
[2017-01-14] MEDS ORDERED: REFRES1 OPH (17:30)
[2017-01-14] MEDS ORDERED: TOPAMAX200 MG PO (17:30)
[2017-01-14] MEDS ORDERED: PRAVACHOL80 MG PO (17:31)
[2017-01-14] MEDS ORDERED: KLONO5 PO (17:31)
== END 2016-10-12 17:21 | DRG 698 ==
LOC: ER 08:50 → 1SO 13:22
PROVIDERS: Hospitalist; Surgery
PROC: 30233K1 Transfusion of Nonautologous Frozen Plasma into Peripheral Vein, Percutaneous Approach (ICD-10-PCS; 2016-10-08)
PROC: 30233N1 Transfusion of Nonautologous Red Blood Cells into Peripheral Vein, Percutaneous Approach (ICD-10-PCS; 2016-10-09)
PROC: 05HN33Z Insertion of Infusion Device into Left Internal Jugular Vein, Percutaneous Approach (ICD-10-PCS; 2016-10-12)
PROC: B544ZZA Ultrasonography of Left Jugular Veins, Guidance (ICD-10-PCS; 2016-10-12)
PROC: 0JH60XZ Insertion of Tunneled Vascular Access Device into Chest Subcutaneous Tissue and Fascia, Open Approach (ICD-10-PCS; principal; 2016-10-12 07:45)
DX: T83.518A Infection and inflammatory reaction due to other urinary catheter, initial encounter (principal); R65.21 Severe sepsis with septic shock; G93.41 Metabolic encephalopathy; N17.9 Acute kidney failure, unspecified; T81.32XA Disruption of internal operation (surgical) wound, not elsewhere classified, initial encounter; R13.10 Dysphagia, unspecified; T81.30XA Disruption of wound, unspecified, initial encounter; D62 Acute posthemorrhagic anemia; I82.C11 Acute embolism and thrombosis of right internal jugular vein; L76.22 Postprocedural hemorrhage of skin and subcutaneous tissue following other procedure; N30.01 Acute cystitis with hematuria; E11.9 Type 2 diabetes mellitus without complications; B96.1 Klebsiella pneumoniae [K. pneumoniae] as the cause of diseases classified elsewhere; E86.0 Dehydration; I10 Essential (primary) hypertension; I25.10 Atherosclerotic heart disease of native coronary artery without angina pectoris; D63.8 Anemia in other chronic diseases classified elsewhere; Y83.8 Other surgical procedures as the cause of abnormal reaction of the patient, or of later complication, without mention of misadventure at the time of the procedure; E78.5 Hyperlipidemia, unspecified; H54.8 Legal blindness, as defined in USA; G40.909 Epilepsy, unspecified, not intractable, without status epilepticus; D50.9 Iron deficiency anemia, unspecified; Y83.2 Surgical operation with anastomosis, bypass or graft as the cause of abnormal reaction of the patient, or of later complication, without mention of misadventure at the time of the procedure; Y82.8 Other medical devices associated with adverse incidents; I25.2 Old myocardial infarction; Z95.5 Presence of coronary angioplasty implant and graft; Z79.82 Long term (current) use of aspirin; Z79.84 Long term (current) use of oral hypoglycemic drugs; Z79.899 Other long term (current) drug therapy; Z87.820 Personal history of traumatic brain injury; Z92.3 Personal history of irradiation; Z92.21 Personal history of antineoplastic chemotherapy; Z87.891 Personal history of nicotine dependence
CPT/HCPCS: 36415; 70450; 70551; 71010; 74176; 76000; 77001; 80048; 80053; 80156; 80164; 81001; 82140; 82607; 82728; 82746; 82805; 82962; 83540; 83550; 83735; 84145; 84425; 84439; 84443; 84484; 85014; 85018; 85025; 85610; 85611; 85611-59; 85730; 86850; 86900; 86901; 86920; 87040; 87077; 87086; 87186; 93005; 95819; 97162-GP; 99285; A9270-GY; C1788; G8978-CL-GP; G8979-CK-GP; J0690; J0692; J1956; J2250; J2370; J2405; J3010; J3430; P9016; P9059

== ENCOUNTER 2016-11-22 16:22 | Inpatient (IN) | payer MEDICARE, OTHER ==
--- NOTE | ~2016-11-22 | DS ---
Discharge Summary [facility] [address] [place]. [address] NAME: MAGGIE DÍAZ : 55 STATUS : DIS IN PAT#: [id number] AGE: 61 ADM/REG DATE : 11/23/16 MR#: [id number] REPORT SERV DATE: 11/26/16 DICTATED BY: JR. THOMAS WILLIAM JOHN DATE: 11/25/16 REPORT STATUS : Draft TRANSCRIBED BY: NIKKY DATE: 11/25/16 ADMISSION DATE: 11/23/2016 DISCHARGE DATE: 11/25/2016 DISCHARGE DIAGNOSES: 1. Encephalopathy likely secondary to Tegretol overdose. 2. Extended-spectrum beta-lactamase Escherichia coli, colonization of the bladder. 3. Hyponatremia. 4. Perineal wound. 5. Noninsulin requiring diabetes mellitus with neuropathy. 6. Visual impairment. 7. History of rectal cancer, status post surgery and ostomy. 8. Late effect of stroke. OPERATIONS, PROCEDURES, AND TREATMENTS: 1. Chest x-ray done on 11/22/2016 which showed no acute process. 2. 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 3. CT of the brain with contrast showed intact wiyot of George without enhancement. DISCHARGE MEDICATIONS: 1. Norvasc 10 mg orally daily. 2. Aspirin 81 mg orally daily. 3. Tegretol 400 mg orally twice a day. 4. Depakote 500 mg orally twice a day. 5. Neurontin 600 mg orally daily. 6. Dilaudid 4 mg orally twice a day. 7. Dilaudid 4 mg orally daily as needed. 8. Protonix 40 mg orally twice a day. 9. MiraLAX daily. 10.Pravachol 80 mg daily. 11.Florastor 250 mg daily. 12.Simethicone 80 mg q.6 hours scheduled. 13.Topamax 200 mg twice a day. 14.Klonopin 0.25 mg daily. 15.Glucophage 500 mg with breakfast and supper. HOSPITAL COURSE: The patient is a 61-year-old male, who presented from [facility] in [place] with lethargy, confusion, with a history of prior urinary tract infections. The patient's history was not well known; however, by report to Dr. Xavier, he had been increasingly confused and was therefore brought to the emergency room. On initial exam, temperature was 98.1, blood pressure 133/57, heart rate 79, respiratory rate 15. In general, he was ill appearing, no distress, quite lethargic, but arousable, otherwise Discharge Summary [address] [place]. [address] NAME: MAGGIE DÍAZ : 55 STATUS : DIS IN PAT#: [id number] AGE: 61 ADM/REG DATE : 11/23/16 MR#: [id number] REPORT SERV DATE: 11/26/16 DICTATED BY: JR. THOMAS WILLIAM JOHN DATE: 11/25/16 REPORT STATUS : Draft TRANSCRIBED BY: NIKKY DATE: 11/25/16 unremarkable. Exam was remarkable for a white count of 4.5. Urinalysis with large leukocyte esterase, 42 white blood cells per high-power field. Chest x-ray and CT are detailed above. The patient was admitted to the hospital for mental status change. Drug levels showed that his Tegretol level was quite elevated, this was held and his mental status returned to normal. The patient was initially placed on Rocephin for presumed urinary tract infection; however, he had no white count, no temperature, etc. This was therefore felt to be a colonization with a long-term indwelling Castro. His Castro catheter was changed. Antibiotics were withheld. He was observed, he had no evidence of infection and is to be discharged back to [facility] today, 11/25/2016. For discharge exam and laboratory, please see daily progress note. This discharge took 34 minutes for patient encounter, coordination care, and documentation. DAVID/NIKKY Jaycob Thomas Jr, MD / [id number] CC: Jaycob Thomas Jr, MD
--- NOTE | ~2016-11-22 | HP ---
History And Physical [facility] [address] [facility] [place]. [address] NAME: MAGGIE DÍAZ : 55 STATUS : ADM Ivan PAT#: [id number] AGE: 61 ADM/REG DATE : 11/22/16 MR#: [id number] REPORT SERV DATE: 11/23/16 DICTATED BY: MARYAN ARNOLD DATE: 11/22/16 REPORT STATUS : Draft TRANSCRIBED BY: MODEdward DATE: 11/22/16 DATE OF ADMISSION: 11/22/2016 CHIEF COMPLAINT: A 61-year-old male, presenting from [facility] with lethargy, confusion, and evidence of recurrent urinary tract infection. HISTORY OF PRESENT ILLNESS: The patient's history was obtained through an interview with the patient's brother by phone and review of medical records obtained from [facility]. Unfortunately, the patient was unable to give a history of himself because of lethargy and confusion. There was also review made of [facility] medical records. The patient's history is not well known, but it seems that just two days ago, his brother was visiting and the patient was doing extremely well. He was able to participate in activities of daily living and get around with a walker and seemed mentally astute. He has had continued wound care issues related to perineal and bottom wound, but apparently, this has been improving as well. But it was just on the day of admission that the patient became increasingly weak, poorly responsive with increasing confusion. He was brought to [facility] to be seen by Dr. Farzad Stein for oncology and apparently "chemotherapy" but he was so weak and so confused and lethargic that he was sent to the emergency department for further evaluation. There has been no reported nausea or vomiting. No change in ostomy output. No fevers or chills. No shortness of breath. No cough. REVIEW OF SYSTEMS: Otherwise, history of presenting illness and review of systems was made, although other information is unknown at this time because of the patient's poor ability to participate in history. PAST MEDICAL HISTORY: 1. T4 rectal cancer, status post surgery, 02/2016, followed by Dr. Farzad Stein. 2. Diabetes. 3. Seizure disorder, on Tegretol and Depakote. 4. Depression. 5. Hypertension. 6. Anemia. 7. Elevated cholesterol. 8. Left eye blind since . 9. 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 10.Pleural effusions. 11.Urinary tract infection leading to sepsis. 12.Partial small bowel obstruction. 13.Cervical spine stenosis. 14.Right MCA stroke by MRI, 09/2016 with chronic disability. History And Physical [place] [address] [place]. [address] NAME: MAGGIE DÍAZ : 55 STATUS : ADM Ivan PAT#: [id number] AGE: 61 ADM/REG DATE : 11/22/16 MR#: [id number] REPORT SERV DATE: 11/23/16 DICTATED BY: MARYAN ARNOLD DATE: 11/22/16 REPORT STATUS : Draft TRANSCRIBED BY: NIKKY DATE: 11/22/16 PAST SURGICAL HISTORY: 1. Bilateral hernia repair. 2. Colostomy with partial colectomy. 3. Perineal repair. ALLERGIES: NO KNOWN DRUG ALLERGIES. SOCIAL HISTORY: Quit smoking in 2015. No alcohol abuse. Resides at [facility]. Ambulates with a walker. Has no children. Has supportive brother, who lives locally. FAMILY HISTORY: Diabetes. CURRENT MEDICATIONS: Norvasc 10 mg p.o. daily, vitamin C, aspirin 81 mg p.o. daily, Tegretol 300 mg in the morning and 800 mg at night, eye drops, Klonopin 0.25 mg p.o. t.i.d. as needed, Depakote 500 mg p.o. b.i.d., Neurontin 600 mg p.o. daily, Dilaudid 4 mg p.o. four times a day and 4 mg every four hours as needed, metformin 500 mg p.o. b.i.d., Zofran p.r.n., Protonix 40 mg p.o. b.i.d., MiraLAX packet daily, Pravachol 80 mg daily, multivitamin, Florastor 250 mg daily, simethicone, Topamax 200 mg p.o. b.i.d. PHYSICAL EXAMINATION: VITAL SIGNS: Temperature 98.1, pulse 79, blood pressure 133/57, respiratory rate 15, O2 saturation 100% on room air. GENERAL: Chronically ill-appearing male, not in any particular distress, but he is quite lethargic. He does arouse to persistent vocal stimuli and painful stimuli, but does not respond to questions at this time. 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 Nares are patent. Oropharynx is clear of obstruction. Moist mucous membranes. NECK: Trachea midline. No thyromegaly. LYMPH: No cervical lymphadenopathy. No supraclavicular lymphadenopathy. No inguinal lymphadenopathy. RESPIRATORY: Clear to auscultation at bases. No wheezes, rales, or rhonchi. Normal respiratory effort. CARDIOVASCULAR: Regular rate and rhythm. No murmurs, rubs, or gallops. No extremity edema is appreciated. ABDOMEN: Completely soft, nontender, nondistended. No hepatosplenomegaly. DERMATOLOGICAL: Warm and dry extremities. No pallor. No cyanosis. PSYCHIATRIC: He has a flat affect. He is poorly responsive, only responding to painful stimuli or very persistent loud vocal stimuli, but he is not oriented to location, time, or his current situation. LABORATORY DATA: ABG was reviewed and appears normal and stable. White blood cell count 4.5, hemoglobin 9.9, hematocrit 29, platelets 197. Sodium 130, potassium 4.0, chloride 97, bicarb 26, BUN 10, creatinine 0.66, glucose 114. INR 1.3. Troponin negative. Urinalysis shows large leukocyte esterase with 42 white blood cells. History And Physical [address] [address] NAME: MAGGIE DÍAZ : 55 STATUS : ADM Ivan PAT#: [id number] AGE: 61 ADM/REG DATE : 11/22/16 MR#: [id number] REPORT SERV DATE: 11/23/16 DICTATED BY: MARYAN ARNOLD DATE: 11/22/16 REPORT STATUS : Draft TRANSCRIBED BY: MODL DATE: 11/22/16 STUDIES: 1. Chest x-ray by my own evaluation shows no acute cardiopulmonary process. 2. CT scan of the brain without contrast shows no acute intracranial process. ASSESSMENT AND PLAN: 1. Urinary tract infection. Catheter-related. Check urine culture. Place on IV Rocephin. 2. Acute encephalopathy possibly secondary to urinary tract infection? I would like to monitor and possibly reduce the use of Dilaudid. We may need also reduce the patient's use of chronic Klonopin. We will check Depakote and Tegretol levels. 3. Perineal wounds. Obtain a Wound Care consult. 4. Diabetes. Check hemoglobin A1c. Place on sliding scale insulin. 5. Rectal cancer. On chemotherapy. Consult Dr. Farzad Stein, Oncologist. 6. Late effects of stroke with disability. [facility]/MODL Maryan Arnold M.D. / [id number] CC: Giovanna Barry M.D. Elaina D'Lynn Rodela, M.D.
[2016-11-22 15:02] LABS: BASOPHILS 0.2 %; BASOPHILS ABSOLUTE 0.01 10/3/uL (0.0-0.16); EOSINOPHILS ABSOLUTE 0.09 10/3/uL (0.0-0.53); HEMOGLOBIN 9.9 g/dL (13.6-17.8); IMMATURE GRANULOCYTES 0.9 %; IMMATURE GRANULOCYTES ABSOLUTE 0.04 10/3/uL (0.0-0.11); LYMPHOCYTES 6.7 %; MANUAL DIFF NO %; MEAN CORPUS HGB CONC 34.1 g/dL (32.0-36.0); MEAN CORPUSCULAR HEMOGLOB 31.4 pg (26.0-34.0); MEAN CORPUSCULAR VOLUME 92.1 fL (80-100); MEAN PLATELET VOLUME 7.7 fL (9.2-13.0); MONOCYTES 13.8 %; MONOCYTES ABSOLUTE 0.62 10/3/uL (0.21-1.20); NEUTROPHILS 76.4 %; NEUTROPHILS ABSOLUTE 3.42 10/3/uL (2.02-8.40); PLATELET COUNT 197 10/3/uL (150-400); RBC DISTRIBUTION WIDTH 21.6 % (12.0-16.0); RED CELL COUNT 3.15 10/6/uL (4.7-6.1); WHITE BLOOD CELLS 4.5 10/3/uL (4.5-10.5)
[2016-11-22 15:13] LABS: INTERNATIONAL NORMAL RATI 1.3 UNITS (-); PROTIME (NOT ORD) 16.3 SEC (12.0-14.5)
[2016-11-22 15:19] LABS: BUN (BLOOD UREA NITROGEN) 10 MG/DL (6-23); CHEST PAIN PROFILE TAT 0 Hrs 23 Mins; CHLORIDE, SERUM 97 MMOL/L (96-112); CO2 (CARBON DIOXIDE) 26 MMOL/L (24-34); CREATININE 0.66 MG/DL (0.70-1.30); GFR AFRICAN AMERICAN 121 ML/MIN (>=60); GFR NON AFRICAN AMERICAN 104 ML/MIN (>=60); SODIUM, SERUM 130 MMOL/L (135-148); TROPONIN I <0.02 NG/ML (<0.05)
[2016-11-22 15:20] LABS: GLUCOSE, SERUM 114 MG/DL (60-99)
[2016-11-22 16:14] LABS: ASCORBIC ACID (UR NOT ORDER) 40 (NEG); BILIRUBIN, URINE NEGATIVE (NEG); ER URINALYSIS TAT 0 Hrs 10 Mins; KETONE, URINE NEGATIVE (NEG); LEUKOCYTE ESTERASE(NOT OR LARGE (NEG); NITRITE (URINE) NEG (NEG); WBC (NOT ORDERED) (RFLEX) 42 (0-5)
[~2016-11-22 16:22] MED LIST changes: +DIL4TAB PO; +EPITOL200 MG PO; +FLORASTOR250 MG PO; +IBU800 PO; +MACROBID PO; +MIRALAX POWDER1 PKT PO; +PRENAVITE PR PO; +ZOFRAN8 PO; +[UNRECOGNIZED DRUG - OTHER] PO
[2016-11-22] MEDS ORDERED: REFRESH OPH (16:40)
[2016-11-22] MEDS ORDERED: MYTAB GAS80 MG PO (16:41)
[2016-11-22] MEDS ORDERED: NORV10 PO (16:41)
[2016-11-22] MEDS ORDERED: PROTONIX PO (16:41)
[2016-11-22] MEDS ORDERED: HALF81 PO (16:42)
[2016-11-22] MEDS ORDERED: MIRALAX POWDER1 PKT PO (16:42)
[2016-11-22] MEDS ORDERED: NEUR600 PO (16:42)
[2016-11-22] MEDS ORDERED: CARBAT300 PO (16:43)
[2016-11-22] MEDS ORDERED: DEPAKOT500 PO (16:45)
[2016-11-22] MEDS ORDERED: PRENAVITE PO (16:46)
[2016-11-22] MEDS ORDERED: GLUCPH PO (16:46)
[2016-11-22] MEDS ORDERED: DIL4TAB PO ×2 (16:48→16:52)
[2016-11-22] MEDS ORDERED: VITC500 PO (16:48)
[2016-11-22] MEDS ORDERED: TOPAMAX200 MG PO (16:49)
[2016-11-22] MEDS ORDERED: FLORASTOR250 MG PO (16:49)
[2016-11-22] MEDS ORDERED: PRAVACHOL80 MG PO (16:50)
[2016-11-22] MEDS ORDERED: TEGRETOL XR400 MG PO (16:51)
[2016-11-22] MEDS ORDERED: KLONO5 PO (16:52)
[2016-11-22] MEDS ORDERED: ZOFRAN4 PO (16:53)
[2016-11-22 19:48] LABS: BE (BASE EXCESS) -2.4 MEQ/L (0 +/- 2.5); CARBOXYHEMOGLOBIN 1.3 % (0-3); HCO3 (ACTUAL BICARBONATE) 21.3 MEQ/L (23-27); HEMOBLOGIN CONTENT 9.5 G/DL (14-18); INSTRUMENT SERIAL # 8087; METHEMOGLOBIN 0.3 % (0-3); O2 CONTENT 12.8 VOL% (18-24); PCO2 (CO2 TENSION) 33 MMHG (35-45); PO2 (O2 TENSION) 93 MMHG (79-93); SAMPLE Arterial; pH 7.43 (7.37-7.43)
[2016-11-22 22:50] LABS: DEPAKENE (VALPROIC ACID) 77.4 MCG/ML (50.0-100.0); TEGRETOL (CARBAMAZEPINE) 19.7 MCG/ML (4.0-10.0)
[2016-11-23 03:35] LABS: BASOPHILS 0.2 %; BASOPHILS ABSOLUTE 0.01 10/3/uL (0.0-0.16); EOSINOPHILS ABSOLUTE 0.04 10/3/uL (0.0-0.53); HEMATOCRIT 27.2 % (40.0-51.0); HEMOGLOBIN 9.2 g/dL (13.6-17.8); IMMATURE GRANULOCYTES 0.2 %; IMMATURE GRANULOCYTES ABSOLUTE 0.01 10/3/uL (0.0-0.11); LYMPHOCYTES 8.9 %; LYMPHOCYTES ABSOLUTE 0.36 10/3/uL (0.67-4.30); MANUAL DIFF NO %; MEAN CORPUS HGB CONC 33.8 g/dL (32.0-36.0); MEAN CORPUSCULAR HEMOGLOB 31.1 pg (26.0-34.0); MEAN CORPUSCULAR VOLUME 91.9 fL (80-100); MEAN PLATELET VOLUME 8.4 fL (9.2-13.0); MONOCYTES 18.1 %; MONOCYTES ABSOLUTE 0.73 10/3/uL (0.21-1.20); NEUTROPHILS 71.6 %; NEUTROPHILS ABSOLUTE 2.89 10/3/uL (2.02-8.40); PLATELET COUNT 195 10/3/uL (150-400); RBC DISTRIBUTION WIDTH 21.7 % (12.0-16.0); RED CELL COUNT 2.96 10/6/uL (4.7-6.1)
[2016-11-23 03:44] LABS: INTERNATIONAL NORMAL RATI 1.4 UNITS (-); PARTIAL THROMBO TIME 40.5 SEC (22.5-37.2); PROTIME (NOT ORD) 17.4 SEC (12.0-14.5)
[2016-11-23 04:02] LABS: A/G RATIO 0.7 (0.7-1.9); ALBUMIN 2.9 G/DL (3.5-5.0); ALKALINE PHOSPHATASE 71 U/L (45-117); BUN (BLOOD UREA NITROGEN) 8 MG/DL (6-23); CALCIUM, SERUM 8.8 MG/DL (8.5-10.4); CHLORIDE, SERUM 97 MMOL/L (96-112); CO2 (CARBON DIOXIDE) 25 MMOL/L (24-34); CREATININE 0.64 MG/DL (0.70-1.30); GFR AFRICAN AMERICAN 122 ML/MIN (>=60); GFR NON AFRICAN AMERICAN 106 ML/MIN (>=60); GLOBULIN 3.9 G/DL (2.5-4.1); GLUCOSE, SERUM 119 MG/DL (60-99); POTASSIUM, SERUM 3.7 MMOL/L (3.5-5.3); SGOT(AST) 8 U/L (5-40); SGPT(ALT) 10 U/L (5-65); SODIUM, SERUM 133 MMOL/L (135-148); TOTAL BILIRUBIN 0.3 MG/DL (0-1.2); TOTAL PROTEIN 6.8 G/DL (6.0-8.5)
[2016-11-24 05:02] LABS: BUN (BLOOD UREA NITROGEN) 8 MG/DL (6-23); CALCIUM, SERUM 8.1 MG/DL (8.5-10.4); CHLORIDE, SERUM 101 MMOL/L (96-112); CO2 (CARBON DIOXIDE) 26 MMOL/L (24-34); CREATININE 0.49 MG/DL (0.70-1.30); GFR AFRICAN AMERICAN 137 ML/MIN (>=60); GFR NON AFRICAN AMERICAN 118 ML/MIN (>=60); GLUCOSE, SERUM 85 MG/DL (60-99); POTASSIUM, SERUM 3.6 MMOL/L (3.5-5.3); SODIUM, SERUM 135 MMOL/L (135-148); TEGRETOL (CARBAMAZEPINE) 8.7 MCG/ML (4.0-10.0)
[2016-11-25 07:27] LABS: HEMATOCRIT 26.4 % (40.0-51.0); HEMOGLOBIN 8.7 g/dL (13.6-17.8); MEAN CORPUSCULAR HEMOGLOB 30.6 pg (26.0-34.0); MEAN PLATELET VOLUME 8.1 fL (9.2-13.0); PLATELET COUNT 205 10/3/uL (150-400); RBC DISTRIBUTION WIDTH 22.4 % (12.0-16.0); RED CELL COUNT 2.84 10/6/uL (4.7-6.1); WHITE BLOOD CELLS 4.5 10/3/uL (4.5-10.5)
[2016-11-25 07:28] LABS: MANUAL DIFF YES %
[2016-11-25 08:13] LABS: BAND NEUTROPHILS 26 %; IMMATURE GRANS ABSOLUTE (CALC) 0.09 10/3/uL (0.0-0.11); LYMPHOCYTES 9 %; LYMPHOCYTES ABSOLUTE (CALC) 0.41 10/3/uL (0.67-4.30); METAMYELOCYTES 1 %; MONOCYTES 11 %; MYELOCYTES 1 %; NEUTROPHILS ABSOLUTE (CALC) 3.51 10/3/uL (2.02-8.40); SEGMENTED NEUTROPHIL (0) 52 %; TOTAL NUCLEATED CELLS 100
[2016-11-25 08:14] LABS: MACROCYTES 1+ (5-10/OIF) (0-5/OIF); MICROCYTES 1+ (5-10/OIF) (0-5/OIF); PLATELET ESTIMATE ADQ (ADEQUATE); POLYCHROMASIA 1+ (2-5/OIF) (0-1/OIF)
[2017-01-14] MEDS ORDERED: GLUCPH PO (17:27)
[2017-01-14] MEDS ORDERED: MYTAB GAS80 MG PO (17:27)
[2017-01-14] MEDS ORDERED: PRILO PO (17:27)
[2017-01-14] MEDS ORDERED: NEUR600 PO (17:28)
[2017-01-14] MEDS ORDERED: DEPAKOT500 PO (17:28)
[2017-01-14] MEDS ORDERED: ASAB PO (17:28)
[2017-01-14] MEDS ORDERED: NORV10 PO (17:28)
[2017-01-14] MEDS ORDERED: FLORASTOR250 MG PO (17:29)
[2017-01-14] MEDS ORDERED: VITC500 PO (17:29)
[2017-01-14] MEDS ORDERED: DIL4TAB PO (17:29)
[2017-01-14] MEDS ORDERED: PRENAVITE PO (17:29)
[2017-01-14] MEDS ORDERED: TOPAMAX200 MG PO (17:30)
[2017-01-14] MEDS ORDERED: TEGRETOL XR400 MG PO (17:30)
[2017-01-14] MEDS ORDERED: REFRES1 OPH (17:30)
[2017-01-14] MEDS ORDERED: KLONO5 PO (17:31)
[2017-01-14] MEDS ORDERED: PRAVACHOL80 MG PO (17:31)
== END 2016-11-25 17:41 | DRG 92 ==
LOC: ER 16:22 → CDU1 18:57 → CDU2 21:36 → 4SO 11-24 22:18
PROVIDERS: Emergency Medicine; Internal Medicine
DX: G92 Toxic encephalopathy (principal); C20 Malignant neoplasm of rectum; E11.40 Type 2 diabetes mellitus with diabetic neuropathy, unspecified; E87.1 Hypo-osmolality and hyponatremia; T42.1X5A Adverse effect of iminostilbenes, initial encounter; G40.909 Epilepsy, unspecified, not intractable, without status epilepticus; Y92.129 Unspecified place in nursing home as the place of occurrence of the external cause; I10 Essential (primary) hypertension; F32.9 Major depressive disorder, single episode, unspecified; H40.9 Unspecified glaucoma; H54.12 Blindness, left eye, low vision right eye; Z87.891 Personal history of nicotine dependence; Z79.82 Long term (current) use of aspirin; Z79.891 Long term (current) use of opiate analgesic; Z79.84 Long term (current) use of oral hypoglycemic drugs; I69.398 Other sequelae of cerebral infarction; Z22.39 Carrier of other specified bacterial diseases; Z90.49 Acquired absence of other specified parts of digestive tract; Q12 Congenital lens malformations; Q14.2 Congenital malformation of optic disc; Z79.899 Other long term (current) drug therapy; Z93.3 Colostomy status; R47.81 Slurred speech; R29.810 Facial weakness
CPT/HCPCS: 36600; 70450; 70460; 71010; 80048; 80053; 80156; 80164; 81001; 82805; 82962; 83036; 83735; 84443; 84484; 85025; 85610; 85730; 87077; 87086; 87186; 99291; A9270-GY; J2550; Q9967

== ENCOUNTER 2017-01-09 20:08 | Emergency (ER) | payer MEDICARE, OTHER ==
[2017-01-09 18:48] LABS: BASOPHILS 0.2 %; BASOPHILS ABSOLUTE 0.01 10/3/uL (0.0-0.16); EOSINOPHILS 1.2 %; EOSINOPHILS ABSOLUTE 0.07 10/3/uL (0.0-0.53); ER CBC TAT 0 Hrs 12 Mins; HEMATOCRIT 24.8 % (40.0-51.0); HEMOGLOBIN 8.2 g/dL (13.6-17.8); IMMATURE GRANULOCYTES 0.3 %; IMMATURE GRANULOCYTES ABSOLUTE 0.02 10/3/uL (0.0-0.11); LYMPHOCYTES 6.3 %; LYMPHOCYTES ABSOLUTE 0.37 10/3/uL (0.67-4.30); MEAN CORPUS HGB CONC 33.1 g/dL (32.0-36.0); MEAN CORPUSCULAR HEMOGLOB 31.2 pg (26.0-34.0); MEAN CORPUSCULAR VOLUME 94.3 fL (80-100); MEAN PLATELET VOLUME 8.6 fL (9.2-13.0); MONOCYTES 13.9 %; MONOCYTES ABSOLUTE 0.82 10/3/uL (0.21-1.20); NEUTROPHILS 78.1 %; NEUTROPHILS ABSOLUTE 4.61 10/3/uL (2.02-8.40); PLATELET COUNT 240 10/3/uL (150-400); RBC DISTRIBUTION WIDTH 19.3 % (12.0-16.0); RED CELL COUNT 2.63 10/6/uL (4.7-6.1); WHITE BLOOD CELLS 5.9 10/3/uL (4.5-10.5)
[2017-01-09 18:51] LABS: MANUAL DIFF NO %
[2017-01-09 18:59] LABS: ASCORBIC ACID (UR NOT ORDER) 40 (NEG); BILIRUBIN, URINE NEGATIVE (NEG); ER URINALYSIS TAT 0 Hrs 23 Mins; KETONE, URINE TRACE MG/DL (NEG); LEUKOCYTE ESTERASE(NOT OR SMALL (NEG); NITRITE (URINE) POS (NEG); WBC (NOT ORDERED) (RFLEX) 7 (0-5)
[2017-01-09 19:05] LABS: A/G RATIO 0.7 (0.7-1.9); ALBUMIN 2.8 G/DL (3.5-5.0); ALKALINE PHOSPHATASE 65 U/L (45-117); BUN (BLOOD UREA NITROGEN) 6 MG/DL (6-23); CALCIUM, SERUM 8.8 MG/DL (8.5-10.4); CHLORIDE, SERUM 95 MMOL/L (96-112); CO2 (CARBON DIOXIDE) 25 MMOL/L (24-34); GFR AFRICAN AMERICAN 126 ML/MIN (>=60); GFR NON AFRICAN AMERICAN 109 ML/MIN (>=60); GLOBULIN 3.9 G/DL (2.5-4.1); POTASSIUM, SERUM 3.5 MMOL/L (3.5-5.3); SGOT(AST) 9 U/L (5-40); SGPT(ALT) 7 U/L (5-65); SODIUM, SERUM 130 MMOL/L (135-148); TOTAL BILIRUBIN 0.3 MG/DL (0-1.2); TOTAL PROTEIN 6.7 G/DL (6.0-8.5)
[2017-01-09 19:06] LABS: GLUCOSE, SERUM 105 MG/DL (60-99)
[2017-01-09 19:10] LABS: LACTATE 1.5 MMOL/L (0.3-2.4)
[2017-01-09 19:57] LABS: PROCALCITONIN 0.06 ng/mL (<0.5)
[~2017-01-09 20:08] MED LIST changes: +HALF81 PO; +MYTAB GAS80 MG PO; +PRENAVITE PO; +REFRESH OPH; +TEGRETOL XR400 MG PO
[2017-01-09] MEDS ORDERED: MACROBID PO (21:23)
[2017-01-09] MEDS ORDERED: PRILO PO (21:26)
[2017-01-14] MEDS ORDERED: MYTAB GAS80 MG PO (17:27)
[2017-01-14] MEDS ORDERED: PRILO PO (17:27)
[2017-01-14] MEDS ORDERED: GLUCPH PO (17:27)
[2017-01-14] MEDS ORDERED: ASAB PO (17:28)
[2017-01-14] MEDS ORDERED: DEPAKOT500 PO (17:28)
[2017-01-14] MEDS ORDERED: NORV10 PO (17:28)
[2017-01-14] MEDS ORDERED: NEUR600 PO (17:28)
[2017-01-14] MEDS ORDERED: FLORASTOR250 MG PO (17:29)
[2017-01-14] MEDS ORDERED: VITC500 PO (17:29)
[2017-01-14] MEDS ORDERED: DIL4TAB PO (17:29)
[2017-01-14] MEDS ORDERED: PRENAVITE PO (17:29)
[2017-01-14] MEDS ORDERED: TOPAMAX200 MG PO (17:30)
[2017-01-14] MEDS ORDERED: REFRES1 OPH (17:30)
[2017-01-14] MEDS ORDERED: TEGRETOL XR400 MG PO (17:30)
[2017-01-14] MEDS ORDERED: KLONO5 PO (17:31)
[2017-01-14] MEDS ORDERED: PRAVACHOL80 MG PO (17:31)
== END 2017-01-10 00:04 | disposition home or self-care (01) ==
LOC: ER 20:08
PROVIDERS: Emergency Medicine
DX: D64.9 Anemia, unspecified (principal); E11.9 Type 2 diabetes mellitus without complications; Z79.899 Other long term (current) drug therapy; Z79.84 Long term (current) use of oral hypoglycemic drugs; Z79.82 Long term (current) use of aspirin; Z85.038 Personal history of other malignant neoplasm of large intestine
CPT/HCPCS: 70450; 80053; 81001; 82962; 83605; 84145; 85025; 87040; 87077; 87086; 87186; 93005; 96374; 99285